=== PATIENT | female | born 2000 | race Caucasian/White ===

== ENCOUNTER 2018-12-28 20:38 | Emergency (ER) | payer BC ==
[2018-12-28] MEDS ORDERED: Triple Antibiotic Oint 1 GM Packet ONE ×2 (21:13→21:14)
[2018-12-28] MEDS ORDERED: Adacel (T-DAP) 0.5 ML SYRINGE ONE (21:13)
== END 2018-12-28 21:27 | disposition home or self-care (01) ==
LOC: ERS 20:38
DX: S60.512A Abrasion of left hand, initial encounter (principal); S50.312A Abrasion of left elbow, initial encounter; S60.446A External constriction of right little finger, initial encounter; Z79.899 Other long term (current) drug therapy; W49.04XA Ring or other jewelry causing external constriction, initial encounter; W05.1XXA Fall from non-moving nonmotorized scooter, initial encounter
CPT/HCPCS: 90471; 90715